=== PATIENT | female | born 1995 | race Caucasian/White ===

== ENCOUNTER 2020-04-25 07:52 | Emergency (ER) | payer SELFPAY ==
--- NOTE | 2020-04-25 08:26 | ED_ITS ---
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 Patient since then, 3 days ago, has had pain and discomfort with movement of the wrist. Patient appears well. Patient appears in no pain at rest. Review of Systems General: Reports: 10 or more systems reviewed and unremarkable except in HPI and below Musc: Reports: joint pain (right wrist) [facility] ED PFSH: Medical History (Updated 04/25/20 @ 08:40 by MALU Dunham) Bipolar 1 disorder, mixed, severe Cannabis withdrawal with perceptual disturbance Insomnia Panic disorder with agoraphobia and severe panic attacks Post traumatic stress disorder (PTSD) Social History Current gender identity: Female Physical Exam Const: COMMON NORMALS: no acute distress and patient oriented x3 GENERAL APPEARANCE: cooperative HENMT: COMMON NORMALS: normocephalic, TM's normal bilaterally and Normal external nose present HEAD & SCALP: normal to inspection and normocephalic NOSE: Normal external nose present TYMPANIC MEMBRANE: TM's normal bilaterally MOUTH: Normal oral and palatal mucosa present THROAT: posterior oropharynx normal Eye: GENERAL EYE: appearance normal, both eyes and all related structures Neck/C-Spine: COMMON NORMALS: full ROM Lymph: LYMPHATIC: no lymphadenopathy noted Chest: COMMONS NORMALS: normal inspection of the chest Resp: COMMON NORMALS: normal respiratory effort EFFORT & INSPECTION: Yes able to speak in complete sentences Cardio: COMMON NORMALS: regular rate and regular rhythm RATE: regular rate RHYTHM: regular rhythm GI: COMMON NORMALS: non-tender Back/Pelvis: COMMON NORMALS: thoracic and lumbar spine normal to inspection Extremity: NARRATIVE EXTREMITY EXAM: Tenderness noted to the right radial wrist. Patient has normal range of motion of the extremity, normal tendon function, range of motion does elicit pain. Neuro: COMMON NORMALS: patient oriented x3 and moves all extremities Psych: COMMON NORMALS: mental status grossly normal and cooperative Skin: COMMON NORMALS: no rashes or lesions noted GENERAL SKIN EXAM: no rashes or lesions noted Course Vital Signs: Vital signs: Vital Signs Temperature 97.6 F 04/25/20 08:31 Pulse Rate 59 L 04/25/20 08:31 Respiratory Rate 18 04/25/20 08:31 Blood Pressure 104/82 04/25/20 08:31 Pulse Oximetry 95 04/25/20 08:31 MDM - Extremity Injury (Upper) MDM Narrative: Medical decision making narrative: Patient comes in with pain and discomfort to the right radial wrist and thumb. Exam notes tenderness on palpation. Normal pulses. Normal tendon function. Differential diagnosis includes fracture, sprain, contusion, tendinitis. X-ray noted no fracture. Reviewed exam with patient with recommendations for treatment of sprain. And need for follow-up. Patient reported understanding and agreed to plan. Discharge Plan Discharge Patient Disposition: Home, Self-Care Clinical Impression: De Quervain's disease (tenosynovitis) Condition: Stable Prescriptions: New diclofenac sodium 75 mg tablet,delayed release (DR/EC) 75 mg PO BID Qty: 20 RF: 0 No Action Hair, Skin, Nails with Biotin 7.5-7.5-1,250 mg-unit-mcg Tablet,Chewable 1 tab PO DAILY RF: 0 Vitamin D3 See Rx Instructions .ROUTE .COMPLEX RF: 0 Discharge Orders: Discharge Order (Routine); Ordered 04/25/20 Ordered By: Josh Ellison Discharge Diet: Usual diet Discharge Activity: Increase activity as tolerated Patient Instructions: Wrist Sprain (ED) Activity Restrictions/Additional Instructions: Wear splint for protection of thumb. The thumb must be splinted in order to allow rest. We have put you in a cock-up splint which will provide some i mmobility to that joint. There are more specialized splints that you can buy at [employer] or other [employer] stores. Use acetaminophen for further pain relief. Take diclofenac twice daily as directed to help with pain and inflammation. You may use ice for further pain relief. Most often immobility for 1 to 2 weeks will resolve pain and discomfort. If it continues longer or seems to worsen you should have it reevaluated. If you run a high fever or get significant redness and swelling to the area return to the ER, otherwise follow- up with primary care. 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
[2020-04-25 08:31] VITALS: BP 104/82; PULSE 59; RESP 18; TEMP 36.4; O2SAT 95; BMI 46.8
--- NOTE | 2020-04-25 08:33 | XRR_ITS ---
PROCEDURE INFORMATION: Exam: XR Right Wrist Exam date and time: 04/25/2020 8:33 AM Age: 24 years old Clinical indication: Pain; Wrist; Right; Additional info: Injury TECHNIQUE: Imaging protocol: XR Right wrist. Views: 3 or more views. COMPARISON: No relevant prior studies available. FINDINGS: Bones/joints: No fracture. No dislocation. No joint space widening or narrowing. Soft tissues: No pronator quadratus sign. XR/XR wrist RT min 3V* [id number] IMPRESSION: No acute osseous abnormality.
[2020-04-25 09:20] VITALS: BP 127/89; PULSE 72; RESP 18; O2SAT 98
== END 2020-04-25 09:19 | disposition home or self-care (01) ==
PROVIDERS: Emergency Provider Nurse Practitioner Family
DX: M65.4 Radial styloid tenosynovitis [de Quervain] (principal)
CPT/HCPCS: 12345; 29125; 73110; 99281; 99283

== ENCOUNTER 2020-05-14 07:21 | Emergency (ER) | payer SELFPAY ==
[2020-05-14 07:25] VITALS: BP 132/64; PULSE 83; RESP 16; TEMP 36.7; O2SAT 97; BMI 46.8
--- NOTE | 2020-05-14 07:25 | W.ED.BACK ---
HPI - Back Pain/Injury General: Chief Complaint: Back Pain/Injury Stated Complaint: BACK PAIN Time Seen by Provider: 05/14/20 07:25 Source: patient Mode of arrival: ambulatory Limitations: no limitations History of Present Illness: HPI Narrative: Patient comes in for an episode of mid back pain starting yesterday. 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 Patient reports that she does have occasional back pain. Patient appears well. Patient appears in mild to moderate pain. Patient denies any fever or changes in bowel or bladder habits. MD elicited complaint: back pain Review of Systems General: Reports: 10 or more systems reviewed and unremarkable except in HPI and below Musc: Reports: back pain PFSH ED PFSH: Medical History (Updated 05/14/20 @ 07:36 by MALU Dunham) Bipolar 1 disorder, mixed, severe Cannabis withdrawal with perceptual disturbance Insomnia Panic disorder with agoraphobia and severe panic attacks Post traumatic stress disorder (PTSD) Social History Smoking and tobacco status: never smoked Current gender identity: Female Physical Exam Const: COMMON NORMALS: no acute distress and patient oriented x3 GENERAL APPEARANCE: cooperative HENMT: COMMON NORMALS: normocephalic and Normal external nose present HEAD & SCALP: normal to inspection and normocephalic NOSE: Normal external nose present MOUTH: Normal oral and palatal mucosa present THROAT: posterior oropharynx normal Eye: GENERAL EYE: appearance normal, both eyes and all related structures Neck/C-Spine: COMMON NORMALS: supple CERVICAL SPINE: Yes Paracervical muscle tenderness Chest: COMMONS NORMALS: normal inspection of the chest Resp: COMMON NORMALS: normal respiratory effort EFFORT & INSPECTION: Yes able to speak in complete sentences Cardio: COMMON NORMALS: regular rate and regular rhythm RATE: regular rate RHYTHM: regular rhythm GI: COMMON NORMALS: non-tender : COMMON NORMALS: Yes no CVA tenderness BLADDER/KIDNEY EXAM: Yes no CVA tenderness Back/Pelvis: COMMON NORMALS: no CVA tenderness THORACIC SPINE/UPPER BACK: Yes pain with ROM, Yes paraspinal muscle tenderness and Yes paraspinal muscle spasm Thoracic paraspinal muscle spasm: left Extremity: COMMON NORMALS: normal to inspection Neuro: COMMON NORMALS: patient oriented x3 and moves all extremities Psych: COMMON NORMALS: mental status grossly normal and cooperative Skin: COMMON NORMALS: no rashes or lesions noted GENERAL SKIN EXAM: no rashes or lesions noted Course Vital Signs: Vital signs: Vital Signs Temperature 98.1 F 05/14/20 07:25 Pulse Rate 83 05/14/20 07:25 Respiratory Rate 17 05/14/20 07:33 Blood Pressure 117/87 05/14/20 07:33 Pulse Oximetry 97 05/14/20 07:25 MDM - Back Pain/Injury MDM Narrative: Medical decision making narrative: Patient comes in today for complaints of mid back pain. Patient also reports some neck discomfort. Exam notes some muscle tenderness in the left upper back with tightness. Patient also has some paraspinous muscle tenderness to the neck but with good range of motion. Respirations are even lungs are clear to auscultation. Patient is guarded with movement of upper back and neck. Vital signs are normal. Differential diagnosis includes but not limited to muscle strain, intervertebral disc disease, facet arthropathy. Discussed with patient likelihood of muscle/myofascial strain. Reviewed exam with patient with recommendations for treatment and follow-up. Patient reports understanding and agreed to plan. Discharge Plan Discharge Patient Disposition: Home, Self-Care Clinical Impression: Thoracic back pain Qualifiers: Chronicity: acute Back pain laterality: unspecified Qualified Code(s): M54.6 - Pain in thoracic spine Condition: Stable Prescriptions: New naproxen 500 mg tablet 500 mg PO BID Qty: 20 RF: 0 tizanidine 4 mg tablet 4 mg PO Q8H PRN (Reason: muscle spasticity) Qty: 20 RF: 0 Discontinued diclofenac sodium 75 mg tablet,delayed release (DR/EC) 75 mg PO BID Qty: 20 RF: 0 No Action Hair, Skin, Nails with Biotin 7.5-7.5-1,250 mg-unit-mcg Tablet,Chewable 1 tab PO DAILY RF: 0 Vitamin D3 See Rx Instructions .ROUTE .COMPLEX RF: 0 Discharge Orders: Discharge Order (Routine); Ordered 05/14/20 Ordered By: Josh Ellison Discharge Diet: Usual diet Discharge Activity: Increase activity as tolerated Patient Instructions: Back Pain (ED) Activity Restrictions/Additional Instructions: Drink plenty of water. Activity as tolerated. Gentle range of motion and stretching daily. Use ice or heat for further pain relief. Use acetaminophen for further pain relief. Most back pain will usually resolve without any treatment. It may take 7 to 10 days for the inflammatory process and pain to be return to your normal. Healthy lifestyle choices will help benefit the back and prevent chronic back pain. Return to the ER for high fever, changes in bowel or bladder habits, or new concerns. Follow-up with primary care in 1 week as needed for further evaluation. 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
[2020-05-14 07:33] VITALS: BP 117/87; RESP 17
[2020-05-14] MEDS: naproxen 500 mg Tablet PO (08:14)
[2020-05-14] MEDS: tizanidine 4 mg Tablet 8 MG PO (08:16)
[2020-05-14 08:33] VITALS: RESP 16
== END 2020-05-14 08:34 | disposition home or self-care (01) ==
LOC: ER 07:41
PROVIDERS: Emergency Provider Nurse Practitioner Family
DX: M54.6 Pain in thoracic spine (principal)
CPT/HCPCS: 12345; 99282; 99283

== ENCOUNTER → 2020-07-04 10:52 | Outpatient (BNVA) | payer SELFPAY | PROVIDERS: Visit Provider Nurse Practitioner | DX: R39.15 Urgency of urination (principal); N39.0 Urinary tract infection, site not specified | CPT/HCPCS: 81000; 81025 ==

== ENCOUNTER → 2020-07-23 16:04 | Outpatient (BNVA) | payer SELFPAY | PROVIDERS: Visit Provider Nurse Practitioner Family | DX: R11.0 Nausea (principal); R35.0 Frequency of micturition | CPT/HCPCS: 81000; 81025 ==

== ENCOUNTER 2020-08-05 16:36 | Emergency (ER) | payer SELFPAY ==
[2020-08-05 16:40] VITALS: BP 145/84; PULSE 80; RESP 18; TEMP 36.9; O2SAT 100; BMI 47.5
--- NOTE | 2020-08-05 16:47 | US_ITS ---
WS: [id number] EXAM: RIGHT UPPER QUADRANT ULTRASOUND DATE OF EXAMINATION: 08/05/2020, 1725 hours COMPARISON: None. HISTORY: 24 years old with epigastric pain. FINDINGS: Visualized pancreas is normal in appearance. Proximal inferior vena cava and aorta are normal in caliber. Liver echotexture is normal without evidence of mass lesion. Liver is not appreciably enlarged. Jasmine l venous flow is demonstrated by color flow and spectral Doppler with flow toward the liver. Gallbladder is normally distended. Several stones are identified in the lumen. No pericholecystic inf lammatory change. Common bile duct diameter is estimated at 8 mm in maximum transverse caliber. Considered abnormal for this age of patient. No stone is seen as visualized. CT of the abdomen without contrast would be rec ommended to check for a possible distal common bile duct stone. The right kidney is estimated at 10.0 x 5.8 x 4.6 cm in size. Cortical thickness and echotexture are normal. No mass or obstructive uropathy is seen. US/US gall bladder [id number] IMPRESSION: Cholelithiasis without evidence of cholecystitis. Common bile duct appears dilated without definite stone seen. Noncontrast CT of the abdomen recommended to check for a distal common bile duct stone to correl ate for the dilatation. Correlation with biliary laboratory values also recomme nded.
--- NOTE | 2020-08-05 16:47 | W.ED.ABDPA2 ---
Documented by User: GABI Ruiz 08/06/20 07:05 HPI - Abdominal Pain General: Chief Complaint: Abdominal Pain Stated Complaint: ABD Pain Time Seen by Provider: 08/05/20 16:41 Source: patient Mode of arrival: ambulatory Limitations: no limitations History of Present Illness: HPI narrative: Patient is a 24-year-old female who presents to ED today with complaints of upper abdominal pain over the past 20 minutes. Patient tells me it feels like a gallbladder attack . States she had one similar 1.5 years ago. She has never followed up with general surgery. She does not complain of any nausea, vomiting, changes in bowel movements. She has not been running fevers. She states pain seems to radiate into her right shoulder and back. MD elicited complaint: abdominal pain Onset (ago): minute(s) Pain Consistency: constant Location: Epigastric Severity: severe Quality: sharp Exacerbating factors: nothing Relieving factors: nothing Associated Symptoms: Denies change in bowel habits, change in stool character, chills, coffee ground emesis, diarrhea, dysuria, fever(s), hematochezia, hematemesis, melena, nausea and vomiting Related Data: Date of Last Menstrual Period: 07/11/20 Review of Systems Const: Denies: fever(s), chills, body aches, change in weight, fatigue or malaise ENMT: Denies: odynophagia Card: Denies: chest pain or palpitations Resp: Denies: dyspnea GI: Reports: abdominal pain; Denies: nausea, vomiting, hematemesis, coffee ground emesis, diarrhea, change in bowel habits, change in stool character, hematochezia or melena : Denies: flank pain, difficulty voiding, dysuria, urinary frequency, urinary urgency or urinary hesitancy Musc: Denies: neck pain, back pain, extremity pain, extremity swelling, joint pain or joint swelling Skin/Breast: Denies: rash Neuro: Denies: headache(s), numbness in extremities, weakness in extremities or sensory changes PFSH ED PFSH: Medical History Bipolar 1 disorder, mixed, severe Cannabis withdrawal with perceptual disturbance Insomnia Panic disorder with agoraphobia and severe panic attacks Post traumatic stress disorder (PTSD) Social History Smoking and tobacco status: current every day smoker Current gender identity: Female Female Reproductive History: Date of last menstrual period: 07/11/20 Physical Exam Const: COMMON NORMALS: patient oriented x3, no limitations and alert GENERAL APPEARANCE: cooperative and in distress (crying due to pain) NUTRITIONAL APPEARANCE: obese morbidly obese ORIENTATION/CONSCIOUSNESS: Yes oriented to person, Yes oriented to place and Yes oriented to time HENMT: COMMON NORMALS: normocephalic and atraumatic HEAD & SCALP: normocephalic and atraumatic Resp: COMMON NORMALS: normal respiratory effort and clear to auscultation bilaterally AUSCULTATION: clear to auscultation bilaterally Cardio: COMMON NORMALS: regular rate and regular rhythm RATE: regular rate RHYTHM: regular rhythm GI: COMMON NORMALS: Normal to inspection, nondistended, normoactive bowel sounds present, Soft to palpation, No hepatosplenomegaly present and no masses PALPATION: Yes Soft to palpation, Yes Tenderness to palpation present (GI) (RUQ but mainly epigastric ) and Yes No hepatosplenomegaly present : COMMON NORMALS: Yes no CVA tenderness BLADDER/KIDNEY EXAM: Yes no CVA tenderness Back/Pelvis: COMMON NORMALS: no CVA tenderness Extremity: COMMON NORMALS: normal to inspection Neuro: COMMON NORMALS: patient oriented x3 SENSORIUM/ORIENTATION: Yes alert, Yes oriented to person, Yes oriented to place and Yes oriented to time Skin: COMMON NORMALS: no rashes or lesions noted GENERAL SKIN EXAM: no rashes or lesions noted Course Vital Signs: Vital signs: Vital Signs Temperature 98.4 F 08/05/20 16:40 Pulse Rate 76 08/05/20 20:06 Respiratory Rate 14 08/05/20 20:06 Blood Pressure 142/87 08/05/20 18:44 Pulse Oximetry 100 08/05/20 20:06 MDM - Abdominal Pain Lab Data: Labs: Lab Results 08/05/20 08/05/20 08/05/20 Range/Units 16:50 16:50 16:50 WBC 10.9 H (4.0-10.0) 10^3/ uL RBC 4.29 (4.1-5.3) 10^6/u L Hgb 12.7 (11.5-15.3) g/dL Hct 38.2 (37.0-47.0) % MCV 89.0 (81-99) fL MCH 29.6 (28.0-34.0) pg MCHC 33.2 (30.0-36.0) g/dL RDW 12.9 (12.1-15.1) % Plt Count 225 (130-400) 10^3/c mm MPV 11.2 H (7.4-10.4) fL Neut % (Auto) 52.4 % Lymph % (Auto) 36.7 % Gilchrist % (Auto) 8.0 % Eos % (Auto) 2.3 % Baso % (Auto) 0.3 % Neut # (Auto) 5.73 (1.8-7.7) 10^3/u L Lymph # (Auto) 4.0 (0.8-4.8) 10^3/u L Gilchrist # (Auto) 0.9 (0.2-0.9) 10^3/u L Eos # (Auto) 0.3 (0.0-0.8) 10^3/u L Baso # (Auto) 0.0 (0.0-0.1) 10^3/u L Nucleated RBC % (a uto) 0 % Nucleated RBCs # 0.0 /100WBC Sodium 139 (136-145) mmol/L Potassium 3.1 L (3.5-5.1) mmol/L Chloride 102 (98-107) mmol/L Carbon Dioxide 19 L (22-29) mmol/L Anion Gap 21.1 H (5-19) BUN 13 (6-20) mg/dL Creatinine 0.8 (0.5-0.9) mg/dL GFR Calculation 88.1 L (90-130) mL/min Glucose 114 (65-115) mg/dL Calculated Osmolal ity 289 (285-295) mOsm/k g Calcium 9.4 (8.5-10.5) mg/dL Total Bilirubin 0.2 (0.15-1.2) mg/dL AST 22 (0-32) U/L ALT 21 (0-33) U/L Alkaline Phosphata se 68 (35-105) IU/L Total Protein 7.9 (6.6-8.7) g/dL Albumin 4.5 (3.5-5.2) g/dL Globulin 3.4 (1.3-4.6) g/dL Lipase 62 H (13-60) U/L HCG, Qual Negative (Negative) Urine Color (Yellow) Urine Appearance (CLEAR) Urine pH (5-7) Ur Specific Gravit y (1.005-1.030) Urine Protein (Negative) Urine Glucose (UA) (Normal) Urine Ketones (Negative) Urine Blood (Negative) Urine Nitrate (Negative) Urine Bilirubin (Negative) Urine Urobilinogen (Negative) mg/dL Ur Leukocyte Julita ase (Negative) Urine RBC (0-2) /hpf Urine WBC (0-5) /hpf Ur Squamous Epith Cells (0-5) /hpf Amorphous Sediment Urine Bacteria (NONE) /hpf 08/05/20 Range/Units 17:53 WBC (4.0-10.0) 10^3/ uL RBC (4.1-5.3) 10^6/u L Hgb (11.5-15.3) g/dL Hct (37.0-47.0) % MCV (81-99) fL MCH (28.0-34.0) pg MCHC (30.0-36.0) g/dL RDW (12.1-15.1) % Plt Count (130-400) 10^3/c mm MPV (7.4-10.4) fL Neut % (Auto) % Lymph % (Auto) % Gilchrist % (Auto) % Eos % (Auto) % Baso % (Auto) % Neut # (Auto) (1.8-7.7) 10^3/u L Lymph # (Auto) (0.8-4.8) 10^3/u L Gilchrist # (Auto) (0.2-0.9) 10^3/u L Eos # (Auto) (0.0-0.8) 10^3/u L Baso # (Auto) (0.0-0.1) 10^3/u L Nucleated RBC % (a uto) % Nucleated RBCs # /100WBC Sodium (136-145) mmol/L Potassium (3.5-5.1) mmol/L Chloride (98-107) mmol/L Carbon Dioxide (22-29) mmol/L Anion Gap (5-19) BUN (6-20) mg/dL Creatinine (0.5-0.9) mg/dL GFR Calculation (90-130) mL/min Glucose (65-115) mg/dL Calculated Osmolal ity (285-295) mOsm/k g Calcium (8.5-10.5) mg/dL Total Bilirubin (0.15-1.2) mg/dL AST (0-32) U/L ALT (0-33) U/L Alkaline Phosphata se (35-105) IU/L Total Protein (6.6-8.7) g/dL Albumin (3.5-5.2) g/dL Globulin (1.3-4.6) g/dL Lipase (13-60) U/L HCG, Qual (Negative) Urine Color Yellow (Yellow) Urine Appearance Hazy A (CLEAR) Urine pH 7 (5-7) Ur Specific Gravit y 1.015 (1.005-1.030) Urine Protein Neg (Negative) Urine Glucose (UA) Norm (Normal) Urine Ketones 1+ H (Negative) Urine Blood Trace H (Negative) Urine Nitrate Negative (Negative) Urine Bilirubin Neg (Negative) Urine Urobilinogen Norm (Negative) mg/dL Ur Leukocyte Julita ase Negative (Negative) Urine RBC 0-4 H (0-2) /hpf Urine WBC None (0-5) /hpf Ur Squamous Epith Cells 5-10 H (0-5) /hpf Amorphous Sediment Not Reportable Urine Bacteria 1+ H (NONE) /hpf Discharge Plan Discharge Patient Disposition: Home Clinical Impression: Biliary colic Cholelithiasis Qualifiers: Cholelithiasis location: gallbladder Cholecystitis presence: without cholecystitis Biliary obstruction: without biliary obstruction Qualified Code(s): K80.20 - Calculus of gallbladder without cholecystitis without obstruction Condition: Stable Prescriptions: New Zofran 4 mg tablet 4 mg PO Q8H Qty: 30 RF: 0 No Action No Known Home Medications RF: 0 Discharge Orders: Discharge Order (Routine); Ordered 08/05/20 Ordered By: Zia Rios Discharge Diet: Advance as tolerated and Clear Liquid Discharge Activity: Increase activity as tolerated Patient Instructions: Cholelithiasis, Biliary Colic (ED) Activity Restrictions/Additional Instructions: Follow-up with medical provider as directed. Case management should be contacting you in the next several days to set up an appointment with general surgery. Take medications as prescribed. Start with a clear liquid diet over the next 24 hours and advance diet as tolerated. Return to the ER or your medical provider if condition worsens. Please read and understand discharge instructions. If any questions, please ask. Stand Alone Forms: Work/School Release Discharge Date/Time: 08/05/20 20:07 Sign Out Sign Out Data: Patient Sign Out occurred on 08/05/20 at 17:14. Patient's care was discussed, and care was transferred from to GABI Tamayo. Coding Level of Care Code ED Early Breastfeeding Care Specialist for Chg Fwd Exam Comprehensive Documented by User: GABI Tamayo 08/06/20 02:40 HPI - Abdominal Pain General: Chief Complaint: Abdominal Pain Stated Complaint: ABD Pain Time Seen by Provider: 08/05/20 16:41 History of Present Illness: Associated Symptoms: Reports nausea Review of Systems GI: Reports: nausea PFSH ED PFSH: Medical History Bipolar 1 disorder, mixed, severe Cannabis withdrawal with perceptual disturbance Insomnia Panic disorder with agoraphobia and severe panic attacks Post traumatic stress disorder (PTSD) Social History Smoking and tobacco status: current every day smoker Current gender identity: Female Course Reevaluation(s): Reevaluation #1: pts pain has improved greatly since given zofran and morphine. She is showing no signs of acute distress or pain after pain meds. Vital Signs: Vital signs: Vital Signs Temperature 98.4 F 08/05/20 16:40 Pulse Rate 76 08/05/20 20:06 Respiratory Rate 14 08/05/20 20:06 Blood Pressure 142/87 08/05/20 18:44 Pulse Oximetry 100 08/05/20 20:06 MDM - Abdominal Pain MDM Narrative: Medical decision making narrative: Patient is a 24-year-old female comes to the ED with epigastric pain and right upper quadrant abdominal pain with nausea. Patient says she has had episodes like this in the past previously and it usually occurs after eating certain foods. Exam shows some right upper quadrant tenderness. White blood cell count 10.9. Total bilirubin 0.2. Ultrasound of gallbladder showed some gallstones seen with common bile duct dilation. Radiologist recommended noncontrast CT of the abdomen performed to evaluate common bile duct dilation. CT of the abdomen Common bile duct is again demonstrated to be dilated on this noncontrast CT. A radiodense stone is not seen. Correlation with biliary laboratory value recommended. The prominence to the common duct appears similar to the 01/25/2019 CT but is new since a 05/21/2017 CT. Etiology for this is uncertain. Patient's pain and nausea was controlled while here in the ED. With patient's pain and nausea well controlled and CT findings not showing any common bile duct obstruction patient and ultrasound of the gallbladder not showing any cholecystitis patient can be discharged and be referred to general surgery. I placed an order with case management for patient to be referred to general surgery. Patient was discharged with a prescription for Zofran for nausea and tramadol for pain. Return to ED precautions given. I told patient that case management will be contacting her in the next several days to set up an appointment with general surgery to further evaluate biliary colic symptoms. Patient told to start a clear liquid diet for the next 24 hours then to advance as tolerated. Patient understood and agreed with plan. Lab Data: Labs: Lab Results 08/05/20 08/05/20 08/05/20 Range/Units 16:50 16:50 16:50 WBC 10.9 H (4.0-10.0) 10^3/ uL RBC 4.29 (4.1-5.3) 10^6/u L Hgb 12.7 (11.5-15.3) g/dL Hct 38.2 (37.0-47.0) % MCV 89.0 (81-99) fL MCH 29.6 (28.0-34.0) pg MCHC 33.2 (30.0-36.0) g/dL RDW 12.9 (12.1-15.1) % Plt Count 225 (130-400) 10^3/c mm MPV 11.2 H (7.4-10.4) fL Neut % (Auto) 52.4 % Lymph % (Auto) 36.7 % Gilchrist % (Auto) 8.0 % Eos % (Auto) 2.3 % Baso % (Auto) 0.3 % Neut # (Auto) 5.73 (1.8-7.7) 10^3/u L Lymph # (Auto) 4.0 (0.8-4.8) 10^3/u L Gilchrist # (Auto) 0.9 (0.2-0.9) 10^3/u L Eos # (Auto) 0.3 (0.0-0.8) 10^3/u L Baso # (Auto) 0.0 (0.0-0.1) 10^3/u L Nucleated RBC % (a uto) 0 % Nucleated RBCs # 0.0 /100WBC Sodium 139 (136-145) mmol/L Potassium 3.1 L (3.5-5.1) mmol/L Chloride 102 (98-107) mmol/L Carbon Dioxide 19 L (22-29) mmol/L Anion Gap 21.1 H (5-19) BUN 13 (6-20) mg/dL Creatinine 0.8 (0.5-0.9) mg/dL GFR Calculation 88.1 L (90-130) mL/min Glucose 114 (65-115) mg/dL Calculated Osmolal ity 289 (285-295) mOsm/k g Calcium 9.4 (8.5-10.5) mg/dL Total Bilirubin 0.2 (0.15-1.2) mg/dL AST 22 (0-32) U/L ALT 21 (0-33) U/L Alkaline Phosphata se 68 (35-105) IU/L Total Protein 7.9 (6.6-8.7) g/dL Albumin 4.5 (3.5-5.2) g/dL Globulin 3.4 (1.3-4.6) g/dL Lipase 62 H (13-60) U/L HCG, Qual Negative (Negative) Urine Color (Yellow) Urine Appearance (CLEAR) Urine pH (5-7) Ur Specific Gravit y (1.005-1.030) Urine Protein (Negative) Urine Glucose (UA) (Normal) Urine Ketones (Negative) Urine Blood (Negative) Urine Nitrate (Negative) Urine Bilirubin (Negative) Urine Urobilinogen (Negative) mg/dL Ur Leukocyte Julita ase (Negative) Urine RBC (0-2) /hpf Urine WBC (0-5) /hpf Ur Squamous Epith Cells (0-5) /hpf Amorphous Sediment Urine Bacteria (NONE) /hpf 08/05/20 Range/Units 17:53 WBC (4.0-10.0) 10^3/ uL RBC (4.1-5.3) 10^6/u L Hgb (11.5-15.3) g/dL Hct (37.0-47.0) % MCV (81-99) fL MCH (28.0-34.0) pg MCHC (30.0-36.0) g/dL RDW (12.1-15.1) % Plt Count (130-400) 10^3/c mm MPV (7.4-10.4) fL Neut % (Auto) % Lymph % (Auto) % Gilchrist % (Auto) % Eos % (Auto) % Baso % (Auto) % Neut # (Auto) (1.8-7.7) 10^3/u L Lymph # (Auto) (0.8-4.8) 10^3/u L Gilchrist # (Auto) (0.2-0.9) 10^3/u L Eos # (Auto) (0.0-0.8) 10^3/u L Baso # (Auto) (0.0-0.1) 10^3/u L Nucleated RBC % (a uto) % Nucleated RBCs # /100WBC Sodium (136-145) mmol/L Potassium (3.5-5.1) mmol/L Chloride (98-107) mmol/L Carbon Dioxide (22-29) mmol/L Anion Gap (5-19) BUN (6-20) mg/dL Creatinine (0.5-0.9) mg/dL GFR Calculation (90-130) mL/min Glucose (65-115) mg/dL Calculated Osmolal ity (285-295) mOsm/k g Calcium (8.5-10.5) mg/dL Total Bilirubin (0.15-1.2) mg/dL AST (0-32) U/L ALT (0-33) U/L Alkaline Phosphata se (35-105) IU/L Total Protein (6.6-8.7) g/dL Albumin (3.5-5.2) g/dL Globulin (1.3-4.6) g/dL Lipase (13-60) U/L HCG, Qual (Negative) Urine Color Yellow (Yellow) Urine Appearance Hazy A (CLEAR) Urine pH 7 (5-7) Ur Specific Gravit y 1.015 (1.005-1.030) Urine Protein Neg (Negative) Urine Glucose (UA) Norm (Normal) Urine Ketones 1+ H (Negative) Urine Blood Trace H (Negative) Urine Nitrate Negative (Negative) Urine Bilirubin Neg (Negative) Urine Urobilinogen Norm (Negative) mg/dL Ur Leukocyte Julita ase Negative (Negative) Urine RBC 0-4 H (0-2) /hpf Urine WBC None (0-5) /hpf Ur Squamous Epith Cells 5-10 H (0-5) /hpf Amorphous Sediment Not Reportable Urine Bacteria 1+ H (NONE) /hpf Imaging Data ^: CT Abd/Pel: Attestation: I personally reviewed and interpreted this imaging study as follows: Radiologist's impression: [place] [address] CT Scan Report Signed Patient: Manda Casas Unit #: [id number] : 1995 Age/Sex: 24 / F ADM Date: 08/05/20 Loc: ER Room/Bed: Attending Dr: Ordering Provider/Ordering MD: Zia Rios Date of Service: 08/05/20 Procedure(s): CT abdomen pelvis con [id number] Accession Number(s): [id number] Report Number: [id number] WS: [id number] EXAM: CT OF THE ABDOMEN AND PELVIS WITHOUT CONTRAST DATE OF EXAMINATION: 08/05/2020, 1814 hours COMPARISON: Prior CT from 01/25/2019 and 05/21/2017 and right upper quadrant ultrasound from the same date. HISTORY: 24 years old with upper abdominal pain. Abnormal ultrasound examination showed a dilated common bile duct. Further evaluation requested for possible common bile duct stone. TECHNIQUE: Transaxial computed tomography images obtained through the abdomen and pelvis without utilization of contrast viewed in multiple windows with reconstructions. DLP: 1229.[address] scans at [facility] use at least one of these dose optimization techniques: automated exposure control; mA and/or kV adjustment per patient size (includes targeted exams where dose is matched to clinical indication); or iterative reconstruction. FINDINGS: The lung bases are clear. Heart size is normal. The aorta is normal in caliber. Without IV contrast evaluation of the lumen is considered inadequate. Liver attenuation is normal. The gallbladder is normally distended. The stones seen on the ultrasound are not readily as visible on the CT. The common bile duct is estimated around 8 mm in diameter. A radiodense stone is not seen. Correlation with biliary lab values is recommended. If they are elevated ERCP would be recommended to exclude a radiolucent stone versus a distal stricture. The spleen is normal in appearance. The pancreas is normal appearance. Adrenal glands are normal appearance. Both kidneys are normal in size and attenuation. No mass or obstructive uropathy is seen. No renal or ureteral calculus is identified. Stomach is full of ingested material otherwise unremarkable. Small bowel is normal in caliber. Colon is normal in caliber. Scattered diverticulosis changes are demonstrated. Normal appendix right false pelvis region. Shotty adenopathy is seen in the mesenteric arcade fairly nonspecific. Bladder is minimally distended. Small umbilical hernia containing fat. Uterus is anteverted. There is a scar between the uterus and anterior abdominal wall presumably related to prior Pfannenstiel incision. No adnexal mass is seen. No appreciable degenerative changes are seen in the spine. CT/CT abdomen pelvis wo con [id number] IMPRESSION: Common bile duct is again demonstrated to be dilated on this noncontrast CT. A radiodense stone is not seen. Correlation with biliary laboratory values recommended. The prominence to the common duct appears similar to the 01/25/2019 CT but is new since a 05/21/2017 CT. Etiology for this is uncertain. Further evaluation recommended. Shotty adenopathy in the mesenteric arcade fairly nonspecific. Normal appendix. Other nonemergent findings as described in the body of the report. Dictated By: Neymar Lemos MD Signed By: Neymar Lemos MD Signed Date/Time: 08/05/20 1836 DD/ 286 US: Attestation: I personally reviewed and interpreted this imaging study as follows: Radiologist's impression: [address] [place] [address] Ultrasound Report Signed Patient: Manda Casas Unit #: [id number] : 1995 Age/Sex: 24 / F ADM Date: 08/05/20 Loc: ER Room/Bed: Attending Dr: Ordering Provider/Ordering MD: Aby Baxter Date of Service: 08/05/20 Procedure(s): US gall bladder [id number] Accession Number(s): [id number] Report Number: [id number] WS: [id number] EXAM: RIGHT UPPER QUADRANT ULTRASOUND DATE OF EXAMINATION: 08/05/2020, 1725 hours COMPARISON: None. HISTORY: 24 years old with epigastric pain. FINDINGS: Visualized pancreas is normal in appearance. Proximal inferior vena cava and aorta are normal in caliber. Liver echotexture is normal without evidence of mass lesion. Liver is not appreciably enlarged. Portal venous flow is demonstrated by color flow and spectral Doppler with flow toward the liver. Gallbladder is normally distended. Several stones are identified in the lumen. No pericholecystic inflammatory change. Common bile duct diameter is estimated at 8 mm in maximum transverse caliber. Considered abnormal for this age of patient. No stone is seen as visualized. CT of the abdomen without contrast would be recommended to check for a possible distal common bile duct stone. The right kidney is estimated at 10.0 x 5.8 x 4.6 cm in size. Cortical thickness and echotexture are normal. No mass or obstructive uropathy is seen. US/US gall bladder [id number] IMPRESSION: Cholelithiasis without evidence of cholecystitis. Common bile duct appears dilated without definite stone seen. Noncontrast CT of the abdomen recommended to check for a distal common bile duct stone to correlate for the dilatation. Correlation with biliary laboratory values also recommended. Dictated By: Neymar Lemos MD Signed By: Neymar Lemos MD Signed Date/Time: 08/05/201747 DD/ 43 Discharge Plan Discharge Patient Disposition: Home Clinical Impression: Biliary colic Cholelithiasis Qualifiers: Cholelithiasis location: gallbladder Cholecystitis presence: without cholecystitis Biliary obstruction: without biliary obstruction Qualified Code(s): K80.20 - Calculus of gallbladder without cholecystitis without obstruction Condition: Stable Prescriptions: New Zofran 4 mg tablet 4 mg PO Q8H Qty: 30 RF: 0 No Action No Known Home Medications RF: 0 Discharge Orders: Discharge Order (Routine); Ordered 08/05/20 Ordered By: Zia Rios Discharge Diet: Advance as tolerated and Clear Liquid Discharge Activity: Increase activity as tolerated Patient Instructions: Cholelithiasis, Biliary Colic (ED) Activity Restrictions/Additional Instructions: Follow-up with medical provider as directed. Case management should be contacting you in the next several days to set up an appointment with general surgery. Take medications as prescribed. Start with a clear liquid diet over the next 24 hours and advance diet as tolerated. Return to the ER or your medical provider if condition worsens. Please read and understand discharge instructions. If any questions, please ask. Stand Alone Forms: Work/School Release Discharge Date/Time: 08/05/20 20:07 Sign Out Sign Out Data: Patient Sign Out occurred on 08/05/20 at 17:14. Patient's care was discussed, and care was transferred from to GABI Tamayo. Coding Level of Care Code ED Early Breastfeeding Care Specialist for Maurice Fwd Exam Comprehensive
[2020-08-05 17:03] LABS: Basophils % 0.3 %; Eosinophils # 0.3 10^3/uL (0.0-0.8); Eosinophils % 2.3 %; Hematocrit 38.2 % (37.0-47.0); Hemoglobin 12.7 g/dL (11.5-15.3); Lymphocytes % 36.7 %; Mean Corpuscular HGB Conc 33.2 g/dL (30.0-36.0); Mean Corpuscular Hemoglobin 29.6 pg (28.0-34.0); Mean Platelet Volume 11.2 fL (7.4-10.4); Monocytes # 0.9 10^3/uL (0.2-0.9); Neutrophils # 5.73 10^3/uL (1.8-7.7); Neutrophils % 52.4 %; Nucleated Red Blood Cells % 0 %; Platelet Count 225 10^3/cmm (130-400); Red Blood Count 4.29 10^6/uL (4.1-5.3); Red Cell Distribution Width 12.9 % (12.1-15.1); White Blood Count 10.9 10^3/uL (4.0-10.0)
[2020-08-05] MEDS: morphine 4 mg/mL SDV 1 mL IVP ×2 (17:03→17:16)
[2020-08-05] MEDS: ondansetron 2 mg/ML SDV 2 mL 4 MG IVP (17:04)
[2020-08-05] MEDS: sodium chloride 0.9% 1,000 ML 999 ML IV (17:06)
[2020-08-05] MEDS: lidocaine 2% viscous 15 ML, aluminum-mag hydrox-simethicon 30 ML, sucralfate oral liq 1 GM PO (17:07)
[2020-08-05 17:10] VITALS: BP 118/75; PULSE 88; RESP 18; O2SAT 100
[2020-08-05 17:20] LABS: HCG, Serum Qual Negative (Negative)
[2020-08-05 17:50] LABS: Alanine Aminotransferase 21 U/L (0-33); Albumin Level 4.5 g/dL (3.5-5.2); Alkaline Phosphatase 68 IU/L (35-105); Anion Gap 21.1 (5-19); Aspartate Amino Transferase 22 U/L (0-32); Blood Urea Nitrogen 13 mg/dL (6-20); Calcium 9.4 mg/dL (8.5-10.5); Carbon Dioxide 19 mmol/L (22-29); Chloride 102 mmol/L (98-107); Globulin 3.4 g/dL (1.3-4.6); Glomerular Filtration Rate 88.1 mL/min (90-130); Glucose 114 mg/dL (65-115); Lipase 62 U/L (13-60); Osmolality Calculated 289 mOsm/kg (285-295); Potassium 3.1 mmol/L (3.5-5.1); Sodium 139 mmol/L (136-145); Total Bilirubin 0.2 mg/dL (0.15-1.2); Total Protein 7.9 g/dL (6.6-8.7)
--- NOTE | 2020-08-05 18:03 | CT_ITS ---
WS: [id number] EXAM: CT OF THE ABDOMEN AND PELVIS WITHOUT CONTRAST DATE OF EXAMINATION: 08/05/2020, 1814 hours COMPARISON: Prior CT from 01/25/2019 and 05/21/2017 and right upper quadrant ultrasound from the same date. HISTORY: 24 years old with upper abdominal pain. Abnormal ultrasound examination showed a dilated common bile duct. Further evaluation requested for possible common bile duct stone. TECHNIQUE: Transaxial computed tomography images obtained through the abdomen and pelvis without utilization of contrast viewed in multiple windows with reconstructions. DLP: 1229.[address] scans at [facility] use at least one of these dose optimization techniques: automat ed exposure control; mA and/or kV adjustment per patient size (includes targeted exams where dose is matched to clinical indication); or iterative reconstruction. FINDINGS: The lung bases are clear. Heart size is normal. The aorta is normal in caliber. Without IV contrast e valuation of the lumen is considered inadequate. Liver attenuation is normal. The gallbladder is norm ally distended. The stones seen on the ultrasound are not readily as visible on the CT. The common bi le duct is estimated around 8 mm in diameter. A radiodense stone is not seen. Correlation with biliar y lab values is recommended. If they are elevated ERCP would be recommended to exclude a radiolucent stone versus a distal stricture. The spleen is normal in appearance. The pancreas is normal appearance. Adrenal glands are normal appearance. Both kidneys are normal in size and attenuation. No mass or obstructive uropathy is seen. No renal or ureteral calculus is identified. Stomach is full of ingested material otherwise unremarkable. Small bowel is normal in caliber. Colon is normal in caliber. Scattered diverticulosis changes are demonstrated. Normal appendix right false pelvis region. Shotty adenopathy is seen in the mesenteric arcade fairly nonspecific. Bladder is minimally distended. Small umbilical hernia containing fat. Uterus is anteverted. There is a scar between the uterus and anterior abdominal wall presumably relat ed to prior Pfannenstiel incision. No adnexal mass is seen. No appreciable degenerative changes are seen in the spine. CT/CT abdomen pelvis wo con [id number] IMPRESSION: Common bile duct is again demonstrated to be dilated on this noncontrast CT. A radiodense stone is not seen. Correlation with biliary laboratory values recomm ended. The prominence to the common duct appears similar to the 01/25/2019 CT but is new since a 05/21/2017 CT. Etiology for this is uncertain. Further evaluation recommended. Shotty adenopathy in the mesenteric arcade fairly nonspecific. Normal appendix. Other nonemergent findings as described in the body of the report.
[2020-08-05 18:44] VITALS: BP 142/87; PULSE 78; RESP 17; O2SAT 100
[2020-08-05 18:45] LABS: Add Urine Microscopic? YES; Bilirubin Urine Neg (Negative); Blood Urine Trace (Negative); Glucose Urine UA Norm (Normal); Ketones Urine 1+ (Negative); Leukocyte Esterase Urine Negative (Negative); Nitrate Urine Negative (Negative); Protein Urine Neg (Negative); Specific Gravity, Urine 1.015 (1.005-1.030); Urine Appearance Hazy (CLEAR); Urine Color Yellow (Yellow); Urobilinogen Urine Norm (Negative); pH Urine 7 (5-7)
[2020-08-05 19:02] LABS: RBC Urine 0-4 /hpf (0-2)
[2020-08-05 19:03] LABS: Add Urine Culture? No; Bacteria Urine 1+ /hpf
[2020-08-05] MEDS: ketorolac 30 mg/mL INJ IVP (19:15)
[2020-08-05 20:06] VITALS: PULSE 76; RESP 14; O2SAT 100
--- NOTE | 2020-08-06 09:17 | DCPLANNER ---
retail assistant store manager had message to schedule a follow up appointment for patient with [facility]. retail assistant store manager called the clinic, spoke with María, gave clinic patients appointment information. Clinic will call patient with appointment information.
--- NOTE | 2020-08-07 10:00 | DCPLANNER ---
Patient has a follow up appointment scheduled for Monday, August 12, 2020 at 2:[address] Rutherford. Clinic will call patient with appointment information.
--- NOTE | 2020-08-29 16:42 | DCPLANNER ---
Patient had a follow up appointment was scheduled for 08.12.20 with Hydro Technician - patient did attend appointment.
== END 2020-08-05 20:07 | disposition home or self-care (01) ==
PROVIDERS: Physician Assistant; Emergency Provider Physician Assistant
DX: K80.20 Calculus of gallbladder without cholecystitis without obstruction (principal); F17.210 Nicotine dependence, cigarettes, uncomplicated
CPT/HCPCS: 12345; 74176; 76705; 80053; 81001; 83690; 84703; 85025; 96361; 96374; 96375; 99283; 99284; J1885; J2270; J2405; J7030

== ENCOUNTER 2021-01-09 09:09 | Emergency (ER) | payer SELFPAY ==
[2021-01-09 09:12] VITALS: BP 140/95; PULSE 84; RESP 16; TEMP 36.8; O2SAT 100; BMI 47.5
--- NOTE | 2021-01-09 09:16 | W.ED.SKABFB ---
HPI - Skin/Abscess/Foreign Bdy General: Chief complaint: Skin/Abscess/Foreign Body Stated complaint: Bump on neck/Since last week Time Seen by Provider: 01/09/21 09:12 Source: patient Mode of arrival: ambulatory Limitations: no limitations History of Present Illness: HPI narrative: Patient presents with a bump to the right side of her neck that she noticed last week. The bump has resolved but now she has a area of bruising. Patient denies any injury. Patient appears well. Review of Systems General: Reports: 10 or more systems reviewed and unremarkable except in HPI and below Skin/Breast: Reports: other (Bump to the right side of her neck.) PFSH ED PFSH: Medical History (Updated 01/09/21 @ 09:30 by MALU Dunham) Bipolar 1 disorder, mixed, severe Cannabis withdrawal with perceptual disturbance Insomnia Panic disorder with agoraphobia and severe panic attacks Post traumatic stress disorder (PTSD) Social History Smoking and tobacco status: current every day smoker Current gender identity: Female Female Reproductive History: Date of last menstrual period: 07/11/20 Physical Exam Const: COMMON NORMALS: no acute distress and patient oriented x3 GENERAL APPEARANCE: cooperative HENMT: COMMON NORMALS: normocephalic, TM's normal bilaterally and Normal external nose present HEAD & SCALP: normal to inspection and normocephalic NOSE: Normal external nose present TYMPANIC MEMBRANE: TM's normal bilaterally MOUTH: Normal oral and palatal mucosa present THROAT: posterior oropharynx normal Eye: GENERAL EYE: appearance normal, both eyes and all related structures Neck/C-Spine: COMMON NORMALS: full ROM Lymph: LYMPHATIC: no lymphadenopathy noted Chest: COMMONS NORMALS: normal inspection of the chest Resp: COMMON NORMALS: normal respiratory effort EFFORT & INSPECTION: Yes able to speak in complete sentences Cardio: COMMON NORMALS: regular rate and regular rhythm RATE: regular rate RHYTHM: regular rhythm GI: COMMON NORMALS: non-tender : COMMON NORMALS: Yes no CVA tenderness BLADDER/KIDNEY EXAM: Yes no CVA tenderness Back/Pelvis: COMMON NORMALS: no CVA tenderness and thoracic and lumbar spine normal to inspection Extremity: COMMON NORMALS: normal to inspection Neuro: COMMON NORMALS: patient oriented x3 and moves all extremities Psych: COMMON NORMALS: mental status grossly normal and cooperative Skin: NARRATIVE SKIN EXAM: Small area of bruising that is approximately 1 cm with minimal tenderness to the right lateral neck. No signs of redness or induration. Course Vital Signs: Vital signs: Vital Signs Temperature 98.2 F 01/09/21 09:12 Pulse Rate 78 01/09/21 09:22 Respiratory Rate 20 H 01/09/21 09:22 Blood Pressure 140/95 01/09/21 09:22 Pulse Oximetry 99 01/09/21 09:22 MDM - Skin/Abscess/Foreign Bdy MDM Narrative: Medical decision making narrative: Patient presenting for concerns of some bruising to the right side of the neck. Patient denies any injury. Patient reports that she felt a little nodule to her neck about a week ago and then today noticed bruising to the area. Exam otherwise was normal noting no carotid bruits or abdominal bruits. Respirations were even lungs are clear to auscultation vital signs noted some mild elevation in blood pressure. Differential diagnosis includes but not limited to hematoma, contusion, capillary venous rupture. I suspect the patient probably have a small capillary that developed a small little rupture due to straining. Patient appears well. No sign of acute bleeding is noted. And otherwise patient is well. Reassured patient and recommended patient follow-up with primary care regarding her blood pressure and other concerns including routine maintenance labs and pressure in her head when she lays on her belly. Discharge Plan Discharge Patient Disposition: Home Clinical Impression: Hematoma and contusion Condition: Stable Prescriptions: No Action No Known Home Medications RF: 0 Zofran 4 mg tablet 4 mg PO Q8H Qty: 30 RF: 0 Discharge Orders: Discharge ED (Routine); Ordered 01/09/21 Ordered By: Josh Ellison Discharge Diet: Usual diet Discharge Activity: Increase activity as tolerated Patient Instructions: Contusion in Adults (ED) Activity Restrictions/Additional Instructions: Activity as tolerated. Follow-up with primary care for recheck of bruising to the neck, also recommend recheck on your blood pressure and talk with your primary care regarding blood work. Return to the emergency room for new concerns. Coding Level of Care Code ED [employer]r for [facility] Lizama Exam Comprehensive
[2021-01-09 09:22] VITALS: BP 140/95; PULSE 78; RESP 20; O2SAT 99
[2021-01-09 10:08] VITALS: BP 123/89; PULSE 98; RESP 16; O2SAT 98
== END 2021-01-09 09:45 | disposition home or self-care (01) ==
PROVIDERS: Emergency Provider Nurse Practitioner Family
DX: S10.93XA Contusion of unspecified part of neck, initial encounter (principal); X58.XXXA Exposure to other specified factors, initial encounter; F17.210 Nicotine dependence, cigarettes, uncomplicated
CPT/HCPCS: 99281

== ENCOUNTER 2021-04-20 02:41 | Emergency (ER) | payer SELFPAY ==
[2021-04-20 02:45] VITALS: BP 146/98; PULSE 105; RESP 16; TEMP 36.4; O2SAT 100; BMI 47.5
--- NOTE | 2021-04-20 02:52 | W.ED.EAR ---
HPI - Ear Problem General: Chief complaint: Ear Stated complaint: possible ear infection Time Seen by Provider: 04/20/21 02:42 Source: patient Mode of arrival: ambulatory Limitations: no limitations History of Present Illness: HPI Narrative: 25-year-old female states she has been having pain in her left ear over the last day. She states that it sharp in nature and rates it a 6 out of 10. She denies any fevers. Denies any worsening improving factors. Denies any recent injuries. Denies any discharge from that ear. Associated symptoms: Reports ear or mastoid pain; Denies fever(s), headache(s) or neck pain Review of Systems Const: Denies: fever(s), chills, body aches or change in appetite Eyes: Denies: blurry vision or eye discomfort ENMT: Reports: ear or mastoid pain Card: Denies: chest pain Resp: Denies: dyspnea GI: Denies: abdominal pain, nausea, vomiting or diarrhea : Denies: dysuria Musc: Denies: neck pain or back pain Skin/Breast: Denies: rash Neuro: Denies: headache(s) Psych: Denies: depression Rell/Lymph: Denies: easy bruising All/Imm: Denies: urticaria PFSH ED PFSH: Medical History (Updated 04/20/21 @ 02:52 by Jaron Araujo MD) Bipolar 1 disorder, mixed, severe Cannabis withdrawal with perceptual disturbance Insomnia Panic disorder with agoraphobia and severe panic attacks Post traumatic stress disorder (PTSD) Social History Smoking and tobacco status: current every day smoker Current gender identity: Female Female Reproductive History: Date of last menstrual period: 07/11/20 Physical Exam Const: COMMON NORMALS: no acute distress, patient oriented x3 and healthy appearing HENMT: COMMON NORMALS: normocephalic and atraumatic HEAD & SCALP: normocephalic and atraumatic TYMPANIC MEMBRANE: TM abnormal TM laterality: left Details: erythematous Eye: COMMON NORMALS: Equal, round and reactive pupils present and EOMs intact bilaterally PUPIL: Yes Equal, round and reactive pupils present Neck/C-Spine: COMMON NORMALS: full ROM and supple Chest: COMMONS NORMALS: normal inspection of the chest and normal palpation of entire chest wall Resp: COMMON NORMALS: normal respiratory effort, No retractions, No use of accessory muscles and clear to auscultation bilaterally AUSCULTATION: clear to auscultation bilaterally Cardio: COMMON NORMALS: regular rate, regular rhythm and No murmurs present (Cardio) RATE: regular rate RHYTHM: regular rhythm GI: COMMON NORMALS: Normal to inspection, nondistended, normoactive bowel sounds present, Soft to palpation, non-tender and no masses PALPATION: Yes Soft to palpation Extremity: COMMON NORMALS: normal to inspection and full ROM Neuro: COMMON NORMALS: patient oriented x3, moves all extremities and no focal motor deficits Psych: COMMON NORMALS: mental status grossly normal, Normal thought process present and cooperative THOUGHT PROCESS: Normal thought process present Skin: COMMON NORMALS: no rashes or lesions noted and no wounds GENERAL SKIN EXAM: no rashes or lesions noted Course Vital Signs: Vital signs: Vital Signs Temperature 97.5 F L 04/20/21 02:45 Pulse Rate 105 H 04/20/21 02:45 Respiratory Rate 16 04/20/21 02:45 Blood Pressure 146/98 04/20/21 02:45 Pulse Oximetry 100 04/20/21 02:45 MDM - Ear MDM Narrative: Medical decision making narrative: Patient presents here with otitis media of the left ear. She is well-appearing here and will start her on antibiotics. She is to follow-up with PCP and return if worsening. Discharge Plan Discharge Patient Disposition: Home Clinical Impression: Otitis media Qualifiers: Otitis media type: unspecified Chronicity: acute Qualified Code(s): H66.90 - Otitis media, unspecified, unspecified ear Condition: Stable Prescriptions: New cephalexin 500 mg capsule 500 mg PO TID 7 Days Qty: 21 RF: 0 Naprosyn 500 mg tablet 500 mg PO BID PRN (Reason: pain) Qty: 20 RF: 0 No Action Zofran 4 mg tablet 4 mg PO Q8H Qty: 30 RF: 0 Discharge Orders: Discharge ED (Routine); Ordered 04/20/21 Ordered By: Jaron Araujo Discharge Diet: Advance as tolerated Discharge Activity: Resume usual activity Patient Instructions: Otitis Media (ED) Coding Level of Care Code ED Ramp Flight Attendant for Maurice Lizama
[2021-04-20] MEDS: naproxen 500 mg Tablet PO (02:53)
== END 2021-04-20 02:57 | disposition home or self-care (01) ==
LOC: ER 02:52
PROVIDERS: Emergency Provider Emergency Medicine
DX: H66.92 Otitis media, unspecified, left ear (principal); F17.210 Nicotine dependence, cigarettes, uncomplicated
CPT/HCPCS: 99282

== ENCOUNTER → 2022-07-29 09:55 | Outpatient (BNVA) | payer SELFPAY | PROVIDERS: Visit Provider Emergency Medicine | DX: R39.9 Unspecified symptoms and signs involving the genitourinary system (principal); N30.01 Acute cystitis with hematuria | CPT/HCPCS: 81000 ==